=== PATIENT | female | born 1985 | race Caucasian/White ===

== ENCOUNTER 2022-07-15 12:44 | Emergency (ER) | payer MEDICAID, SELFPAY ==
[2022-07-15] VITALS (8 sets, daily range): BP systolic 116–174; BP diastolic 62–112; PULSE 79–110; RESP 13–20; TEMP 37.1; O2SAT 93–98; BMI 32.6
--- NOTE | 2022-07-15 13:06 | CT_ITS ---
STUDY: CT BRAIN WITHOUT CONTRAST REASON FOR EXAM: Female, 36 years old. Altered loc. Detoxification. RADIATION DOSAGE (If Supplied By Facility): CTDIvol = ( 44.99 ) mGy, DLP = ( 779.24 ) mGycm TECHNIQUE: Transaxial CT imaging of the brain was performed without administration of intravenous contrast material. Individualized dose optimization techniques were used for this CT. COMPARISON: No relevant priors. FINDINGS: Normal soft tissue structures. Normal calvarium. Normal size ventricles and extra-axial spaces for the patient''s age. Normal white matter tracts of the cerebral hemispheres. Normal basal ganglia and thalami. Normal brainstem. Normal cerebellum. There is no intracranial hemorrhage. There are no findings of an acute ischemic infarction. Normal visualized paranasal sinuses. CT/Brain/Head without Contrast IMPRESSION: Normal unenhanced CT scan of the brain. Electronically Signed: Deniz Ruiz MD at 14:05 EDT ,
--- NOTE | 2022-07-15 13:08 | EX.ED.DYSGE1 ---
HPI <Dr. Roberto Carlos Acuña DO - Last Filed: 07/15/22 14:07> History of Present Illness Chief Complaint: Overdose Informant: patient Narrative Narrative: [id number] female presents to the emergency department that she was at [facility] today to check her self and for rehab. She states that she is on Suboxone. Yesterday morning she did methamphetamines. She has not yet been to bed. She states this morning she smoked cannabis. When she went to [facility] and noticed that she kept nodding off and she states this is not like her. She states that she has not used any opiates. COUNTS INCLUDE 234 BEDS AT THE [facility] <Dr. Roberto Carlos Acuña DO - Last Filed: 07/15/22 14:07> COUNTS INCLUDE 234 BEDS AT THE [facility] Medical History Anxiety Depression Smoker Substance abuse Allergy/AdvReac Type Severity Reaction Status Date / Time No Known Allergies Allergy Verified 07/15/22 12:49 Social History (Updated 07/15/22 @ 13:[address] Roberto Carlos Acuña DO) Smoking Status: Current every day smoker tobacco type: cigarettes substance use type: marijuana, amphetamines, opiates and methamphetamine ROS <Dr. Roberto Carlos Acuña DO - Last Filed: 07/15/22 14:07> ROS ED Constitutional Constitutional ED: Denies chills or weight loss Eyes Eyes: Denies change in vision or diplopia ENT ENT ED: Denies ear pain, rhinorrhea or sore throat Cardiovascular Cardiovascular: Denies chest pain, orthopnea, palpitations or racing heartbeat Respiratory/Chest Respiratory/Chest: Denies cough, dyspnea or orthopnea Gastrointestinal Gastrointestinal: Denies abdominal pain, diarrhea, nausea or vomiting Genitourinary Genitourinary ED: Denies dysuria, hematuria or urinary frequency Musculoskeletal Musculoskeletal: Denies arthralgias or myalgias Integumentary Denies abscess or rash Neurologic Neurologic: Denies headache(s) or weakness Psychiatric Psychiatric: Denies anxiety, depression, suicidal ideation or suicidal thoughts Endocrine Endocrinology: Denies polydipsia, polyphagia or polyuria Allergic/Immunologic Allergic/Immunologic ED: Denies mouth swelling, tongue swelling or urticaria EXAM <Dr. Roberto Carlos Acuña DO - Last Filed: 07/15/22 14:07> Physical Exam Const Vital Signs: 07/15/22 12:46 07/15/22 12:59 07/15/22 13:53 Temperature 98.7 F Temperature Source Temporal Pulse Rate 110 H 105 H 94 Respiratory Rate 18 16 16 Blood Pressure 160/97 H 130/76 H 136/77 H Blood Pressure Mean 118 94 96 Pulse Ox 97 98 98 Oxygen Delivery Method Room Air Room Air Room Air 07/15/22 14:50 07/15/22 15:56 07/15/22 16:14 Temperature Temperature Source Pulse Rate 91 86 89 Respiratory Rate 17 13 14 Blood Pressure 127/62 H 116/78 128/72 H Blood Pressure Mean 83 90 90 Pulse Ox 93 94 96 Oxygen Delivery Method Room Air Room Air 07/15/22 17:36 07/15/22 18:01 Temperature Temperature Source Pulse Rate 88 79 Respiratory Rate 15 20 H Blood Pressure 174/112 H Blood Pressure Mean 132 Pulse Ox 93 95 Oxygen Delivery Method Room Air Room Air Positive well nourished and well developed General Appearance ED: well developed HEENT Reports normocephalic, head/scalp atraumatic and moist mucous membranes HEENT Narrative: Patient's pupils are 3. Eyes PERRL and EOMs intact bilaterally Neck no lymphadenopathy, supple and no JVD Resp normal respiratory effort and clear to auscultation bilaterally Cardio regular rate, regular rhythm and no murmurs GI normal to inspection, nondistended, normoactive bowel sounds and non-tender Palpation: soft Back/Spine no CVA tenderness and normal ROM Extremity normal to inspection General Extremety ED: Negative for edema General Extremity: Negative for edema Neuro oriented x3 and CN's II-XII intact bilaterally Neuro Narrative: Patient is orientated x3. She is alert as long as you are stimulating her by talking to her. However she usually falls asleep. Sensorium / Orientation: alert and lethargic Motor Exam: strength 5/5 throughout Psych mental status grossly normal Mood & Affect: Negative for depressed or tearful Skin no rashes or lesions noted and no wounds <Dr. Candido Last MD - Last Filed: 07/15/22 18:48> Physical Exam Const Vital Signs: 07/15/22 12:46 07/15/22 12:59 07/15/22 13:53 Temperature 98.7 F Temperature Source Temporal Pulse Rate 110 H 105 H 94 Respiratory Rate 18 16 16 Blood Pressure 160/97 H 130/76 H 136/77 H Blood Pressure Mean 118 94 96 Pulse Ox 97 98 98 Oxygen Delivery Method Room Air Room Air Room Air 07/15/22 14:50 07/15/22 15:56 07/15/22 16:14 Temperature Temperature Source Pulse Rate 91 86 89 Respiratory Rate 17 13 14 Blood Pressure 127/62 H 116/78 128/72 H Blood Pressure Mean 83 90 90 Pulse Ox 93 94 96 Oxygen Delivery Method Room Air Room Air 07/15/22 17:36 07/15/22 18:01 Temperature Temperature Source Pulse Rate 88 79 Respiratory Rate 15 20 H Blood Pressure 174/112 H Blood Pressure Mean 132 Pulse Ox 93 95 Oxygen Delivery Method Room Air Room Air MDM <Dr. Roberto Carlos Acuña, DO - Last Filed: 07/15/22 14:07> [facility] Lab Data Attestation: I reviewed the patient's lab results. Labs: Laboratory Results - last 24 hr 07/15/22 07/15/22 07/15/22 13:41 13:41 13:41 WBC 5.5 RBC 3.71 L Hgb 11.2 L Hct 33.7 L MCV 90.8 MCH 30.2 MCHC 33.2 RDW Std Deviation 45.5 H RDW Coeff of Thomas 13.8 Plt Count 190 MPV 8.9 Immature Gran % (Auto) 0.400 Neut % (Auto) 48.8 Lymph % (Auto) 38.8 [place] % (Auto) 8.9 Eos % (Auto) 2.6 Baso % (Auto) 0.5 Absolute Neuts (auto) 2.7 Absolute Lymphs (auto) 2.13 Nucleated RBC % 0 Sodium 139 Potassium 3.3 L Chloride 105 Carbon Dioxide 30.0 Anion Gap 4 L BUN 11 Creatinine 0.99 Estim Creat Clear Calc 82.89 Est GFR (MDRD) Af Amer 82 Est GFR (MDRD) Non-Af 68 BUN/Creatinine Ratio 11.1 Glucose 108 H Calcium 8.8 Total Bilirubin 0.50 AST 63 H ALT 89 H Alkaline Phosphatase 80 Total Protein 7.0 Albumin 3.6 Globulin 3.4 Albumin/Globulin Ratio 1.1 Serum , Qual Urine Color Urine Clarity Urine pH Ur Specific Ona Urine Protein Urine Glucose (UA) Urine Ketones Urine Occult Blood Urine Nitrite Urine Bilirubin Urine Urobilinogen Ur Leukocyte Esterase Urine RBC Urine WBC Ur Squamous Epith Cells Calcium Oxalate Crystal Urine Bacteria Urine Mucus Urine Opiates Screen Urine Methadone Screen Ur Barbiturates Screen Ur Phencyclidine Scrn Ur Amphetamines Screen MDMA (Ecstasy) Screen U Benzodiazepines Scrn Urine Cocaine Screen U Cannabinoids Screen Ur Drug Screen Comment Ethyl Alcohol 5.0 07/15/22 07/15/22 07/15/22 13:41 17:45 17:45 WBC RBC Hgb Hct MCV MCH MCHC RDW Std Deviation RDW Coeff of Thomas Plt Count MPV Immature Gran % (Auto) Neut % (Auto) Lymph % (Auto) [place] % (Auto) Eos % (Auto) Baso % (Auto) Absolute Neuts (auto) Absolute Lymphs (auto) Nucleated RBC % Sodium Potassium Chloride Carbon Dioxide Anion Gap BUN Creatinine Estim Creat Clear Calc Est GFR (MDRD) Af Amer Est GFR (MDRD) Non-Af BUN/Creatinine Ratio Glucose Calcium Total Bilirubin AST ALT Alkaline Phosphatase Total Protein Albumin Globulin Albumin/Globulin Ratio Serum , Qual NEGATIVE Urine Color Cheryl Urine Clarity Cloudy Urine pH 6.0 Ur Specific On[place] 1.030 Urine Protein 30 H Urine Glucose (UA) Normal Urine Ketones 5 H Urine Occult Blood Negative Urine Nitrite Negative Urine Bilirubin 1 H Urine Urobilinogen 4 H Ur Leukocyte Esterase 25 H Urine RBC 0 SEEN Urine WBC 0-5 SEEN Ur Squamous Epith Cells 5-10 SEEN Calcium Oxalate Crystal RARE Urine Bacteria 1+ Urine Mucus 0 SEEN Urine Opiates Screen NEGATIVE Urine Methadone Screen NEGATIVE Ur Barbiturates Screen NEGATIVE Ur Phencyclidine Scrn NEGATIVE Ur Amphetamines Screen POSITIVE H MDMA (Ecstasy) Screen POSITIVE H U Benzodiazepines Scrn NEGATIVE Urine Cocaine Screen NEGATIVE U Cannabinoids Screen POSITIVE H Ur Drug Screen Comment Ethyl Alcohol Radiography Diagnostic Testing: Clinical Impression(s) from Imaging Studies Brain CT 07/15/22 13:06 IMPRESSION: Normal unenhanced CT scan of the brain. Electronically Signed: Deniz Ruiz MD at 14:05 EDT , <Dr. Candido Last MD - Last Filed: 07/15/22 18:48> [facility] MDM Narrative Medical decision making narrative: Talk screen showed multiple compounds consistent with use. Patient is rested here. She is awake alert now. She is gone to the restroom. She is stable. She states she is still interested in going to [facility]. We will release her to go over there. Lab Data Labs: Laboratory Results - last 24 hr 07/15/22 07/15/22 07/15/22 13:41 13:41 13:41 WBC 5.5 RBC 3.71 L Hgb 11.2 L Hct 33.7 L MCV 90.8 MCH 30.2 MCHC 33.2 RDW Std Deviation 45.5 H RDW Coeff of Thomas 13.8 Plt Count 190 MPV 8.9 Immature Gran % (Auto) 0.400 Neut % (Auto) 48.8 Lymph % (Auto) 38.8 [place] % (Auto) 8.9 Eos % (Auto) 2.6 Baso % (Auto) 0.5 Absolute Neuts (auto) 2.7 Absolute Lymphs (auto) 2.13 Nucleated RBC % 0 Sodium 139 Potassium 3.3 L Chloride 105 Carbon Dioxide 30.0 Anion Gap 4 L BUN 11 Creatinine 0.99 Estim Creat Clear Calc 82.89 Est GFR (MDRD) Af Amer 82 Est GFR (MDRD) Non-Af 68 BUN/Creatinine Ratio 11.1 Glucose 108 H Calcium 8.8 Total Bilirubin 0.50 AST 63 H ALT 89 H Alkaline Phosphatase 80 Total Protein 7.0 Albumin 3.6 Globulin 3.4 Albumin/Globulin Ratio 1.1 Serum , Qual Urine Color Urine Clarity Urine pH Ur Specific Ona Urine Protein Urine Glucose (UA) Urine Ketones Urine Occult Blood Urine Nitrite Urine Bilirubin Urine Urobilinogen Ur Leukocyte Esterase Urine RBC Urine WBC Ur Squamous Epith Cells Calcium Oxalate Crystal Urine Bacteria Urine Mucus Urine Opiates Screen Urine Methadone Screen Ur Barbiturates Screen Ur Phencyclidine Scrn Ur Amphetamines Screen MDMA (Ecstasy) Screen U Benzodiazepines Scrn Urine Cocaine Screen U Cannabinoids Screen Ur Drug Screen Comment Ethyl Alcohol 5.0 07/15/22 07/15/22 07/15/22 13:41 17:45 17:45 WBC RBC Hgb Hct MCV MCH MCHC RDW Std Deviation RDW Coeff of Thomas Plt Count MPV Immature Gran % (Auto) Neut % (Auto) Lymph % (Auto) [place] % (Auto) Eos % (Auto) Baso % (Auto) Absolute Neuts (auto) Absolute Lymphs (auto) Nucleated RBC % Sodium Potassium Chloride Carbon Dioxide Anion Gap BUN Creatinine Estim Creat Clear Calc Est GFR (MDRD) Af Amer Est GFR (MDRD) Non-Af BUN/Creatinine Ratio Glucose Calcium Total Bilirubin AST ALT Alkaline Phosphatase Total Protein Albumin Globulin Albumin/Globulin Ratio Serum , Qual NEGATIVE Urine Color Cheryl Urine Clarity Cloudy Urine pH 6.0 Ur Specific [place] 1.030 Urine Protein 30 H Urine Glucose (UA) Normal Urine Ketones 5 H Urine Occult Blood Negative Urine Nitrite Negative Urine Bilirubin 1 H Urine Urobilinogen 4 H Ur Leukocyte Esterase 25 H Urine RBC 0 SEEN Urine WBC 0-5 SEEN Ur Squamous Epith Cells 5-10 SEEN Calcium Oxalate Crystal RARE Urine Bacteria 1+ Urine Mucus 0 SEEN Urine Opiates Screen NEGATIVE Urine Methadone Screen NEGATIVE Ur Barbiturates Screen NEGATIVE Ur Phencyclidine Scrn NEGATIVE Ur Amphetamines Screen POSITIVE H MDMA (Ecstasy) Screen POSITIVE H U Benzodiazepines Scrn NEGATIVE Urine Cocaine Screen NEGATIVE U Cannabinoids Screen POSITIVE H Ur Drug Screen Comment Ethyl Alcohol Radiography Diagnostic Testing: Clinical Impression(s) from Imaging Studies Brain CT 07/15/22 13:06 IMPRESSION: Normal unenhanced CT scan of the brain. Electronically Signed: Deniz Ruiz MD at 14:05 EDT Reading Location ID and State: [facility] / [place] , Service support , Discharge Plan Triage Chief Complaint: Overdose Other Complaint: Mental Health ED Provider: Candido Last Dx/Rx/DC Orders Clinical Impression: Drug abuse, Fatigue Instructions: ED Drug Abuse Primary Care Provider: MATEO PORTILLO Referrals: NOT,DEFINED [Non-Staff] - [facility] [Non-Staff] - As soon as possible Disposition Disposition: Home, Self Care
[2022-07-15 13:48] LABS: Absolute Lymphocyte Count 2.13 X10^3/uL (0.83-4.51); Absolute Neutrophil Count 2.7 X10^3/uL (2.0-7.7); Basophil# 0.03 X10^3/uL; Basophil% 0.5 % (0-1); Eosinophil# 0.14 X10^3/uL; Eosinophils% 2.6 % (0-5); Hematocrit 33.7 % (37-47); Hemoglobin 11.2 g/dL (12.0-15.0); Lymphocyte # 2.13 X10^3/ul (0.83-4.51); Lymphocyte % 38.8 % (19-41); Mean Corp Hgb Conc 33.2 g/dL (32-36); Mean Corpuscular Hgb 30.2 pg (27.0-32.0); Mean Corpuscular Volume 90.8 fL (81-99); Mean Platelet Vol. 8.9 fl (6.2-12.0); Monocyte# 0.49 X10^3/uL; Monocyte% 8.9 % (0-10); NRBC Flagged by Analyzer 0 % (0-5); Neutrophil # 2.68 X10^3/uL (2.7-7.7); Neutrophil % 48.8 % (47-70); Platelet Count 190 K/mm3 (150-450); RBC Distribution Width CV 13.8 % (11.6-14.6); RBC Distribution Width SD 45.5 fl (35.1-43.9); Red Blood Count 3.71 M/mm3 (4.2-5.4); White Blood Count 5.5 K/mm3 (4.4-11.0)
[2022-07-15 14:03] LABS: ALB/GLOB Ratio 1.1 RATIO (0.9-2.4); AST(SGOT) 63 U/L (15-37); Alanine Aminotransfer ALT/SGPT 89 U/L (13-56); Albumin, Serum 3.6 g/dL (3.2-5.0); Alkaline Phosphatase 80 U/L (45-117); Anion Gap 4 (5-15); BUN 11 mg/dL (7-18); BUN/Creat Ratio 11.1 RATIO (10-20); Calcium,Total 8.8 mg/dL (8.5-10.1); Chloride 105 mmol/L (98-107); Creatinine, Serum 0.99 mg/dL (0.55-1.02); EST Glomerular Filtration Rate 68 mL/min (>60); Est Glom Filt Rate - Afr Amer 82 mL/min (>60); Estimated Creatinine Clearance 82.89 ml/min; Globulin 3.4 g/dL (2.2-4.2); Glucose 108 mg/dL (74-106); Potassium 3.3 mmol/L (3.5-5.1); Sodium Level 139 mmol/L (136-145)
[2022-07-15 14:13] LABS: Internal QC Validated? YES +Cl - CLEAR BKGD; Pregnancy, Serum, hCG Quali. NEGATIVE Negative
--- NOTE | 2022-07-15 14:18 | CM.ED ---
Social Work Note PRAKASH received call from Melania, addiction therapist, stating pt may just return to residential at [facility]. Sherri states that Papo is currently with pt at [facility] ED. PRAKASH spoke with MD Acuña and updated him. MD Acuña states PRAKASH does not need to meet with pt. Pt to be medically cleared and then discharged back to [facility]. Sveta Edmond AUTOMATIC FANCY MACHINE OPERATOR, INBOUND CUSTOMER SERVICE REPRESENTATIVE
[2022-07-15 17:52] LABS: Mucous, Urine 0 SEEN /hpf (<or=2+); Red Blood Cells-Urine 0 SEEN /hpf (0-5)
[2022-07-15 18:06] LABS: Color, Urine Amber (Yellow); Glucose, Dipstick Normal (Normal); Ketone-Dipstick 5 mg/dl (Negative); Leukocyte Esterase-Dipstick 25 /ul (Negative); Nitrite-Dipstick Negative (Negative); Occult Blood-Urine Negative /ul (Negative); Protein-Dipstick 30 mg/dl (Negative); Urine Clarity Cloudy (Clear); Urine Urobilinogen 4 mg/dl (Normal)
[2022-07-15 18:17] LABS: Amphetamine Urine VISTA POSITIVE (<1000 ng/mL); Barbiturate Urine VISTA NEGATIVE (< 200 ng/mL); Benzodiazepine Urine VISTA NEGATIVE (< 200 ng/mL); Cocaine Urine VISTA NEGATIVE (< 300 ng/mL); Ecstacy Urine VISTA POSITIVE (< 500 ng/mL); Methadone Urine VISTA NEGATIVE (< 300 ng/mL); PCP Urine VISTA NEGATIVE (< 25 ng/mL); THC Urine VISTA POSITIVE (< 50 ng/mL); Vista UDS pH Range 4
[2022-07-15 18:18] LABS: Urine Bilirubin Dipstick 1 mg/dL (Negative)
[2022-07-15 18:23] LABS: Bacteria 1+ /hpf (None Seen); Calcium Oxalate Crystals Ur RARE /hpf (<or=2+); Squamous Epithelial Cells - UA 5-10 SEEN /hpf (5-10); White Blood Cells 0-5 SEEN /hpf (0-5)
--- NOTE | 2022-07-15 18:51 | ED.RN ---
pt gave this nurse permission to talk to dad Charly. Dad stated that they have been through this with 3 of their children. She was just found by dad in the last day or so overdosed at home and was just taken to [facility] today. Per dad if she isnt willing to go back to [facility] we are to call him and he will come down here. Dad would like us to call him when she leaves.
== END 2022-07-15 19:42 | disposition home or self-care (01) ==
PROVIDERS: Emergency Medicine; Emergency Provider Emergency Medicine; Visit Provider Emergency Medicine
DX: F15.10 Other stimulant abuse, uncomplicated (principal); F12.10 Cannabis abuse, uncomplicated; F32.A Depression, unspecified; F41.9 Anxiety disorder, unspecified; F17.210 Nicotine dependence, cigarettes, uncomplicated; R53.83 Other fatigue
CPT/HCPCS: 70450; 80053; 80307; 81001; 82077; 84703; 85025; 99282; A4216

== ENCOUNTER → 2022-09-09 | Outpatient (CLI) | payer MEDICAID, SELFPAY ==
[2022-09-09 12:35] LABS: Absolute Lymphocyte Count 2.52 X10^3/uL (0.83-4.51); Absolute Neutrophil Count 3.3 X10^3/uL (2.0-7.7); Basophil# 0.03 X10^3/uL; Basophil% 0.5 % (0-1); Eosinophil# 0.12 X10^3/uL; Eosinophils% 1.9 % (0-5); Hematocrit 35.8 % (37-47); Hemoglobin 11.6 g/dL (12.0-15.0); Lymphocyte # 2.52 X10^3/ul (0.83-4.51); Lymphocyte % 39.1 % (19-41); Mean Corp Hgb Conc 32.4 g/dL (32-36); Mean Corpuscular Hgb 28.1 pg (27.0-32.0); Mean Corpuscular Volume 86.7 fL (81-99); Mean Platelet Vol. 9.2 fl (6.2-12.0); Monocyte# 0.46 X10^3/uL; Monocyte% 7.1 % (0-10); NRBC Flagged by Analyzer 0 % (0-5); Neutrophil % 51.1 % (47-70); Platelet Count 183 K/mm3 (150-450); RBC Distribution Width CV 13.7 % (11.6-14.6); RBC Distribution Width SD 43.7 fl (35.1-43.9); Red Blood Count 4.13 M/mm3 (4.2-5.4); White Blood Count 6.5 K/mm3 (4.4-11.0)
[2022-09-09 12:57] LABS: ALB/GLOB Ratio 1.1 RATIO (0.9-2.4); AST(SGOT) 33 U/L (15-37); Alanine Aminotransfer ALT/SGPT 43 U/L (13-56); Albumin, Serum 3.5 g/dL (3.2-5.0); Alkaline Phosphatase 76 U/L (45-117); Anion Gap 5 (5-15); BUN 12 mg/dL (7-18); BUN/Creat Ratio 15.4 RATIO (10-20); Chloride 104 mmol/L (98-107); Creatinine, Serum 0.78 mg/dL (0.55-1.02); EST Glomerular Filtration Rate 89 mL/min (>60); Est Glom Filt Rate - Afr Amer 108 mL/min (>60); Globulin 3.3 g/dL (2.2-4.2); Glucose 107 mg/dL (74-106); Potassium 4.2 mmol/L (3.5-5.1); Protein, Total 6.8 g/dL (6.4-8.2); Sodium Level 138 mmol/L (136-145)
[2022-09-13 18:07] LABS: Hepatitis C Genotype 1a (.)
[2022-09-14 15:28] LABS: HCV log 10 6.617 (.)
== END | disposition home or self-care (01) ==
LOC: BIMLAB 11:41
PROVIDERS: PCP Internal Medicine; Referring Provider Internal Medicine; Visit Provider Internal Medicine
DX: B18.2 Chronic viral hepatitis C (principal)
CPT/HCPCS: 36415; 80053; 85025; 87522; 87902